=== PATIENT | female | born 1940 | race Caucasian/White ===

== ENCOUNTER → 2016-09-04 | Outpatient (REF) | payer MEDICARE ==
[~2016-09-04] MED LIST: /HCTZ25TA PO; ALDA25TA4 PO; AMLO5TAB2 PO; ATEN25TA PO; LISIPOW; LISIPOW PO; NORCOTAB PO; OMEP10CASR PO; OMEP20CA3 PO; PRAVASTATIN OR; TYLE325T5 PO
[2016-09-04 14:07] LABS: SQUAMOUS EPITHELIAL CELL URINE MOD AMOUNT /hpf (SMALL AMT)
[2016-09-04 14:08] LABS: BACTERIA, URINE NONE SEEN; HYALINE CAST, URINE NONE SEEN /lpf (0-1); MICROSCOPIC EXAM PERFORMED
== END ==
LOC: M LAB REF 13:27
PROVIDERS: ATTEND Nurse Practitioner Adult Health
DX: R31.9 Hematuria, unspecified (principal)

== ENCOUNTER → 2017-11-04 | Outpatient (CLI) | payer MEDICARE | LOC: M ADAMS 13:55 | DX: R07.89 Other chest pain (principal); M81.0 Age-related osteoporosis without current pathological fracture | CPT/HCPCS: 71101 ==

== ENCOUNTER → 2018-09-06 | Outpatient (REF) | payer MEDICARE ==
[~2018-09-06] MED LIST changes: -/HCTZ25TA PO; +AMLO5TAB6 PO; +HYDR-3644 PO
[2018-09-06 16:48] LABS: BACTERIA, URINE AUTO NEGATIVE (NEGATIVE); MUCUS, URINE SMALL (NEGATIVE); RBC, URINE AUTO 2 /HPF (0-3); SQUAMOUS EPITHELIAL CELL UR AU 1 /HPF (0-6); WBC, URINE AUTO 1 /HPF (0-3)
== END ==
LOC: M LAB REF 16:34
PROVIDERS: ATTEND Nurse Practitioner Adult Health
DX: N39.0 Urinary tract infection, site not specified (principal)

== ENCOUNTER → 2020-11-12 | Outpatient (CLI) | payer MEDICARE ==
[~2020-11-12] MED LIST changes: +AMLO1TAB24 PO; -AMLO5TAB6 PO
--- NOTE | 2020-11-12 10:43 | REP ---
INDICATION: PRE OP BREAST IMPLANTS COMPARISON: None. TECHNIQUE: Standard helical technique without intravenous contrast administration FINDINGS: The right breast implant is significantly different in appearance compared to the left. The wilson of the implant appear discontiguous and redundant along with increased intraluminal density and evidence of fluid surrounding the wilson of the implant. There are likely dystrophic calcifications seen surrounding the implant. Limited evaluation of the mediastinum and pulmonary alberto show no evidence of a mass or adenopathy. There is no pleural or pericardial effusion. The imaged osseous structures are within normal limits for the patient's age. The imaged upper abdomen shows no evidence of an acute abnormality. Evaluation of the lung taylor shows biapical pleuroparenchymal scarring. There is mild cylindrical bronchiectasis. No abnormal nodules, masses, or opacities are identified. IMPRESSION: 1. Abnormal right breast implant, as described above, consistent with implant rupture. 2. Chronic lung field changes as described above. There is no revised Fleischner society criteria on the recommendation for follow-up of such findings, however, since there is no prior for comparison I would recommend a short interval 3 to six-month follow-up chest CT. <Electronically signed by Sandip Collins > 11/12/20 1038
== END ==
LOC: M RAD 08:35
PROVIDERS: ATTEND Plastic Surgery Surgery of the Hand
DX: Z98.82 Breast implant status (principal)

== ENCOUNTER → 2020-12-03 | Outpatient (REF) | payer MEDICARE ==
[2020-12-03 16:56] LABS: APPEARANCE, URINE CLEAR (CLEAR); BACTERIA, URINE AUTO NEGATIVE (NEGATIVE); BILIRUBIN, URINE AUTO NEGATIVE (NEGATIVE); BLOOD, URINE BLOOD 2+ (NEGATIVE); COLOR, URINE YELLOW (YELLOW); GLUCOSE, URINE (UA) AUTO NEGATIVE (NEGATIVE); KETONE, URINE AUTO NEGATIVE (NEGATIVE); LEUKOCYTE ESTERASE, URINE AUTO NEGATIVE (NEGATIVE); NITRITE, URINE AUTO NEGATIVE (NEGATIVE); PROTEIN, URINE AUTO NEGATIVE (NEGATIVE); RBC, URINE AUTO 3 /HPF (0-3); SPECIFIC GRAVITY URINE AUTO 1.018 (1.002-1.035); SQUAMOUS EPITHELIAL CELL UR AU 1 /HPF (0-6); UROBILINOGEN, URINE AUTO 0.2 mg/dL (0.0-2.0); WBC, URINE AUTO 1 /HPF (0-3)
== END ==
LOC: M LAB REF 16:28
PROVIDERS: ATTEND Nurse Practitioner Adult Health
DX: N18.31 Chronic kidney disease, stage 3a (principal)

== ENCOUNTER → 2021-02-17 | Outpatient (CLI) | payer MEDICARE ==
[~2021-02-17] MED LIST changes: +AMLO1TAB25 PO; +EZET10TA21 PO; +FAMO20TA5 PO; +METO1TAB32 PO; +TRAM50TA2 PO
== END ==
LOC: M CARPUL 10:15
PROVIDERS: ATTEND Nurse Practitioner Adult Health
DX: R01.1 Cardiac murmur, unspecified (principal)

== ENCOUNTER → 2021-02-24 | Outpatient (CLI) | payer MEDICARE ==
[~2021-02-24] MED LIST changes: -TRAM50TA2 PO
== END ==
LOC: M LABSMTC 10:39
PROVIDERS: ATTEND Anesthesiology
DX: Z20.822 Contact with and (suspected) exposure to COVID-19 (principal)

== ENCOUNTER 2021-02-27 06:01 | Observation (INO) | payer MEDICARE ==
[~2021-02-27] VITALS: Ht 162.6 cm; Wt 55.3 kg
[~2021-02-27 06:01] MED LIST changes: +LIDOCAINE 1% MDV 20ML VIAL SQ PRN; +LR 1,000 ML IV ONE; +ceFAZolin SOD 2 GM in IV 1 EA IV ONE
[2021-02-27] MEDS ORDERED: EPINEPHrine INJ 1 MG/ML 1ML AMP As Ordered ONE (07:10)
[2021-02-27] MEDS ORDERED: LIDOCAINE 1% MDV 20ML VIAL As Ordered ONE (07:10)
[2021-02-27] MEDS ORDERED: GENTAMICIN SULF 80MG/2ML VIAL As Ordered ONE ×2 (07:10→08:41)
[2021-02-27] MEDS ORDERED: BUPIVACAINE LIPOSOME/PF 1.3% 20ML VIAL (13.3MG/ML)(EXPAREL)(C9290 PER1MG) As Ordered ONE (07:11)
[2021-02-27] MEDS ORDERED: SUGAMMADEX SODIUM 500 MG/5 ML VIAL (BRIDION) As Ordered ONE (07:42)
[2021-02-27] MEDS ORDERED: dexameTHASONE 4 MG/ML 1ML VIAL (J1100 PER 1MG) As Ordered ONE (07:42)
[2021-02-27] MEDS ORDERED: METOCLOPRAMIDE INJ 10MG/2ML VIAL (J2765 PER 1) As Ordered ONE (07:42)
[2021-02-27] MEDS ORDERED: LIDOCAINE 2% 100MG/5ML SDV (FOR ANES.) As Ordered ONE (07:42)
[2021-02-27] MEDS ORDERED: ROCURONIUM BROMIDE 50 MG/5 ML VIAL As Ordered ONE (07:42)
[2021-02-27] MEDS ORDERED: MIDAZOLAM INJ 2MG/2ML VIAL (J2250 PER 1MG) As Ordered ONE (07:42)
[2021-02-27] MEDS ORDERED: ONDANSETRON 4MG/2ML VIAL As Ordered ONE (07:42)
[2021-02-27] MEDS ORDERED: propofoL 200 MG/20 ML VIAL As Ordered ONE (07:42)
[2021-02-27] MEDS ORDERED: ACETAMINOPHEN 1000MG 100ML IV BTL (OFIRMEV) (J0131 PER 10MG) As Ordered ONE (07:59)
[2021-02-27] MEDS ORDERED: DESFLURANE 240 ML INHALANT As Ordered ONE (08:04)
[2021-02-27] MEDS ORDERED: SEVOFLURANE INHAL SOLN 250 ML BTL As Ordered ONE (08:06)
[2021-02-27] MEDS ORDERED: fentaNYL 250 MCG/5 ML INJECTION (J3010) As Ordered ONE (09:08)
[2021-02-27] MEDS ORDERED: LACRILUBE (AKWA TEARS) OPHTH OINT 3.5 GM As Ordered ONE (09:28)
[2021-02-27] MEDS: LR 1,000 ML IV SCH (09:40)
[2021-02-27] MEDS ORDERED: KETOROLAC TROMETHAMINE 10 MG TAB PO PRN (09:40)
[2021-02-27] MEDS ORDERED: ONDANSETRON 4MG/2ML VIAL IV PRN ×3 (09:40→11:55)
[2021-02-27] MEDS ORDERED: traMADol 50 MG TAB PO PRN (09:40)
[2021-02-27] MEDS ORDERED: oxyCODONE 5MG TAB PO PRN ×2 (09:45→11:55)
[2021-02-27] MEDS ORDERED: LR 1,000 ML IV SCH ×2 (09:45→11:55)
[2021-02-27] MEDS: fentaNYL 100 MCG/2 ML INJECTION (J3010) IV PRN ×4 (09:56→10:24)
[2021-02-27 11:10] VITALS: BP 130/67
[2021-02-27 11:40] VITALS: BP 129/68
[2021-02-27] MEDS ORDERED: fentaNYL 100 MCG/2 ML INJECTION (J3010) IV PRN (11:55)
[2021-02-27 15:03] VITALS: BP 130/70
[2021-02-27 16:09] VITALS: BP 138/68
[2021-02-27] MEDS: ceFAZolin SOD 1 GM in D5W MINI-BAG PLUS 50 ML IV SCH (18:04)
[2021-02-27 20:00] VITALS: BP 137/68
[2021-02-27] MEDS: ACETAMINOPHEN TAB 650MG DOSE (2X325MG) PO PRN (21:56)
[2021-02-28] MEDS: ceFAZolin SOD 1 GM in D5W MINI-BAG PLUS 50 ML IV SCH ×2 (00:51→08:31)
[2021-02-28 01:49] VITALS: BP 136/65
[2021-02-28] MEDS: LR 1,000 ML IV SCH (05:40)
[2021-02-28 06:00] VITALS: BP 139/92
[2021-02-28] MEDS: ACETAMINOPHEN TAB 650MG DOSE (2X325MG) PO PRN (08:32)
[2021-02-28 08:33] VITALS: BP 139/92
[2021-02-28] MEDS ORDERED: EZETIMIBE 10MG TABLET (ZETIA) PO SCH (09:00)
[2021-02-28] MEDS ORDERED: METOPROLOL SUCC *XL* 25MG TAB (TopROL *XL*) PO SCH (09:00)
[2021-02-28] MEDS ORDERED: FAMOTIDINE 20 MG TAB PO SCH (09:00)
[2021-02-28] MEDS ORDERED: TRAM50TA2 PO (10:36)
== END 2021-02-28 11:20 | disposition home or self-care (01) ==
LOC: M SDC 06:01 → M MS5PR 07:31 → UNDOADMOB 09:36 → M MS5PR 09:36 → M SDC 11:05 → M MS5PR 02-28 11:20 → M SDC 02-28 11:20
PROVIDERS: ADMIT Plastic Surgery Surgery of the Hand; ATTEND Plastic Surgery Surgery of the Hand
DX: T85.41XA Breakdown (mechanical) of breast prosthesis and implant, initial encounter (principal); T85.44XA Capsular contracture of breast implant, initial encounter; Y81.2 Prosthetic and other implants, materials and accessory general- and plastic-surgery devices associated with adverse incidents; I10 Essential (primary) hypertension; E78.00 Pure hypercholesterolemia, unspecified; K21.9 Gastro-esophageal reflux disease without esophagitis; Z90.13 Acquired absence of bilateral breasts and nipples; Z92.21 Personal history of antineoplastic chemotherapy; Z79.899 Other long term (current) drug therapy
CPT/HCPCS: 19357; 19371; 87070; 87075; 87205; 88300; 88302; 96365; 96376; C1789; C9290; G0378; J0131; J0690; J1100; J1580; J2250; J2405; J2765; J3010

== ENCOUNTER → 2021-06-05 | Outpatient (CLI) | payer MEDICARE ==
[~2021-06-05] MED LIST changes: +B-12100010 PO; -LIDOCAINE 1% MDV 20ML VIAL SQ PRN; +LISI10TA22 PO; -LR 1,000 ML IV ONE; +TRAM50TA2 PO; -ceFAZolin SOD 2 GM in IV 1 EA IV ONE
== END ==
LOC: M LABSMTC 11:05
PROVIDERS: ATTEND Anesthesiology
DX: Z01.818 Encounter for other preprocedural examination (principal); Z11.52 Encounter for screening for COVID-19

== ENCOUNTER → 2021-11-12 | Outpatient (REF) | payer MEDICARE ==
[2021-11-12 17:55] LABS: BACTERIA, URINE SMALL AMOUNT; HYALINE CAST, URINE NONE SEEN /lpf (0-1); RBC, URINE 0-1 /hpf (0-3); SQUAMOUS EPITHELIAL CELL URINE SMALL AMOUNT /hpf (SMALL AMT)
== END ==
LOC: M LAB REF 16:32
PROVIDERS: ATTEND Nurse Practitioner Adult Health
DX: R31.9 Hematuria, unspecified (principal)

== ENCOUNTER → 2022-06-10 | Outpatient (REF) | payer MEDICARE | LOC: M LAB REF 16:25 | PROVIDERS: ATTEND Nurse Practitioner Adult Health | DX: R31.9 Hematuria, unspecified (principal) ==

== ENCOUNTER → 2022-06-25 | Outpatient (REF) | payer MEDICARE ==
[2022-06-25 18:35] LABS: APPEARANCE, URINE HAZY (CLEAR); BACTERIA, URINE AUTO NEGATIVE (NEGATIVE); BILIRUBIN, URINE AUTO NEGATIVE (NEGATIVE); BLOOD, URINE BLOOD NEGATIVE (NEGATIVE); COLOR, URINE YELLOW (YELLOW); GLUCOSE, URINE (UA) AUTO NEGATIVE (NEGATIVE); KETONE, URINE AUTO NEGATIVE (NEGATIVE); LEUKOCYTE ESTERASE, URINE AUTO 1+ (NEGATIVE); MUCUS, URINE SMALL (NEGATIVE); NITRITE, URINE AUTO NEGATIVE (NEGATIVE); PROTEIN, URINE AUTO NEGATIVE (NEGATIVE); RBC, URINE AUTO 1 /HPF (0-3); SPECIFIC GRAVITY URINE AUTO 1.014 (1.002-1.035); SQUAMOUS EPITHELIAL CELL UR AU 0 /HPF (0-6); UROBILINOGEN, URINE AUTO 0.2 mg/dL (0.0-2.0); WBC, URINE AUTO 1 /HPF (0-3)
== END ==
LOC: M LAB REF 16:25
PROVIDERS: ATTEND Physician Assistant Medical
DX: R31.21 Asymptomatic microscopic hematuria (principal)

== ENCOUNTER 2023-06-09 07:39 | Day surgery (SDC) | payer MEDICARE ==
[~2023-06-09] VITALS: Ht 162.6 cm; Wt 48.5 kg
[~2023-06-09 07:39] MED LIST changes: +ATROPINE SULFATE 1% OPHTH SOLN 2ML BTL OS SCH; +PHENYLEPHRINE 10% OPHTH SOL 5ML OS PRN; +PHENYLEPHRINE 2.5% OPHTH SOL 2ML OS SCH; +TROPICAMIDE 1% OPHTH SOLN 15ML OS SCH
[2023-06-09] MEDS: LIDOCAINE 3.5 % 1ML OPHTH TOPICAL GEL OU ONE (09:50)
[2023-06-09] MEDS: OFLOXACIN 0.3 % (OCUFLOX) OPTH SOL 5ML OS ONE (09:50)
[2023-06-09] MEDS ORDERED: fentaNYL 100 MCG/2 ML INJECTION As Ordered ONE (10:31)
[2023-06-09] MEDS ORDERED: MIDAZOLAM INJ 2MG/2ML VIAL As Ordered ONE (10:31)
[2023-06-09] MEDS: CEFUROXIME 1MG/0.1ML INTRACAMERAL INJ As Ordered ONE (10:51)
[2023-06-09] MEDS: LIDOCAINE 1% SDV 5ML VIAL As Ordered ONE (10:51)
[2023-06-09] MEDS: BSS IRRIG/VANCO(10MG)/TOBRA(5MG)/EPINEPH(1:1000-0.5CC)500ML BAG-ORONLY As Ordered ONE (10:51)
[2023-06-09 11:03] VITALS: BP 136/65; TEMP 96.9; O2SAT 99
== END 2023-06-09 11:23 | disposition home or self-care (01) ==
LOC: M SDC 07:39
PROVIDERS: ATTEND Ophthalmology
DX: H25.12 Age-related nuclear cataract, left eye (principal); I10 Essential (primary) hypertension; Z79.899 Other long term (current) drug therapy
CPT/HCPCS: 66984; 92015; J0697; J2250; J3010; V2632